=== PATIENT | female | born 1940 ===

== ENCOUNTER 2024-08-10 16:15 | Emergency (ER) | payer MEDICARE, OTHER ==
[~2024-08-10] VITALS: Ht 170.2 cm; Wt 43.2 kg
[2024-08-10] MEDS ORDERED: SENN-376 PO (17:50)
[2024-08-10] MEDS ORDERED: MULT-1192 PO (17:50)
[2024-08-10] MEDS ORDERED: VITA-328 PO (17:50)
[2024-08-10] MEDS ORDERED: GABA-1181 PO (17:50)
[2024-08-10] MEDS ORDERED: CALC-992 PO (17:50)
[2024-08-10] MEDS ORDERED: OMEG100014 PO (17:50)
[2024-08-10] MEDS ORDERED: MINE133E26 PR (17:50)
[2024-08-10] MEDS ORDERED: SERT-158 PO (17:50)
[2024-08-10] MEDS ORDERED: DOCU50LI40 PO (17:50)
[2024-08-10] MEDS ORDERED: MIRT-89 PO (17:50)
[2024-08-10] MEDS ORDERED: MEGE400O44 PO (17:50)
[2024-08-10] MEDS ORDERED: MEMA10TA24 PO (17:50)
[2024-08-10] MEDS ORDERED: BISA10SU11 PR (17:50)
[2024-08-10] MEDS ORDERED: MELA3TAB89 PO (17:50)
[2024-08-10] MEDS ORDERED: MAGN-169 PO (17:50)
[2024-08-10] MEDS ORDERED: ACET-2247 PO (17:50)
[2024-08-10 18:07] LABS: ANION GAP 7 mmol/L (8-16); CALCIUM, TOTAL 8.5 mg/dL (8.8-10.5); CARBON DIOXIDE 24 mmol/L (22-29); CHLORIDE 107 mmol/L (98-107); CREATININE 0.71 mg/dL (0.60-1.30); GLOMERULAR FILTR. RATE CALC > 60 mL/min (>60); GLUCOSE,RANDOM 96 mg/dL (70-110); POTASSIUM 3.9 mmol/L (3.5-5.1); SODIUM SERUM 138 mmol/L (136-145); UREA NITROGEN, BLOOD 17 mg/dL (7-18)
[2024-08-10 18:08] LABS: BASOPHILS % (AUTO) 1.1 % (0.0-2.0); HEMATOCRIT 35.6 % (36-46); HEMOGLOBIN 12.2 g/dL (12.0-16.0); LYMPHOCYTES # (AUTO) 1.7 K/uL (1.0-4.8); LYMPHOCYTES % (AUTO) 27.4 % (22.0-44.0); MEAN CORPUSCULAR HEMOGLOBIN 31.7 pg (26.0-34.0); MEAN CORPUSCULAR HGB CONC 34.3 G/dL (31.0-37.0); MEAN CORPUSCULAR VOLUME 92 fL (80-100); MONOCYTES # (AUTO) 0.8 K/uL (0.1-1.0); MONOCYTES % (AUTO) 12.2 % (2.0-9.0); NEUTROPHILS # (AUTO) 3.6 K/uL (1.8-7.7); NEUTROPHILS % (AUTO) 57.3 % (40.0-70.0); PLATELET COUNT (AUTO) 172 K/uL (150-450); RED BLOOD CELL COUNT(AUTO) 3.86 MIL/uL (4.00-5.20); RED CELL DISTRIBUTION WIDTH 14.4 % (11.5-14.5); WHITE BLOOD COUNT (AUTO) 6.3 K/uL (4.5-11.0)
[2024-08-10 19:20] VITALS: BP 144/80; PULSE 70; RESP 13; TEMP 97.9; O2SAT 99
[2024-08-10 20:52] LABS: COVID AG,FIA SOURCE NASAL SWAB
[2024-08-10 21:14] LABS: SARS-COV2 (COVID) ANTIGEN,FIA Negative (Negative)
[2024-08-10 21:51] LABS: APPEARANCE,URINE HAZY (CLEAR); BILIRUBIN,URINE NEGATIVE (NEGATIVE); COLOR,URINE LIGHT YELLOW (YELLOW); GLUCOSE, URINE (UA) NEGATIVE (NEGATIVE); KETONES,URINE NEGATIVE (NEGATIVE); LEUKOCYTE ESTERASE ,URINE SMALL (NEGATIVE); NITRATE,URINE POSITIVE (NEGATIVE); OCCULT BLOOD,URINE NEGATIVE (NEGATIVE); PROTEIN,URINE NEGATIVE (NEGATIVE); SPECIFIC GRAVITIY, URINE 1.008 (1.003-1.030); UROBILINOGEN,URINE <=1.0 mg/dL (<=1.0)
[2024-08-10 21:58] LABS: ALCOHOL, URINE DRUG SCREEN NEGATIVE (NEGATIVE); AMPHET/METH SCREEN,URINE NEGATIVE (NEGATIVE); BARBITURATE SCREEN, URINE NEGATIVE (NEGATIVE); BENZODIAZEPINES SCREEN,URINE NEGATIVE (NEGATIVE); CANNABINOID SCREEN,URINE NEGATIVE (NEGATIVE); COCAINE SCREEN,URINE NEGATIVE (NEGATIVE); METHADONE SCREEN, URINE NEGATIVE (NEGATIVE); OPIATE SCREEN,URINE NEGATIVE (NEGATIVE); PHENCYCLIDINE SCREEN,URINE NEGATIVE (NEGATIVE)
[2024-08-10 22:06] LABS: BACTERIA,URINE Many /HPF (None Seen); RBC,URINE 0-2 /HPF (0-2); SQUAMOUS EPITHELIAL CELL,UR Few /LPF (None Seen)
[2024-08-10] MEDS: CEPHALEXIN MONOHYDRATE 500 MG CAPSULE PO ONE (22:28)
== END 2024-08-11 00:09 ==
LOC: EMS 16:15
DX: N39.0 Urinary tract infection, site not specified (principal); R41.0 Disorientation, unspecified; F02.83 Dementia in other diseases classified elsewhere, unspecified severity, with mood disturbance; F32.A Depression, unspecified; G30.9 Alzheimer's disease, unspecified; Z79.899 Other long term (current) drug therapy; Z20.822 Contact with and (suspected) exposure to COVID-19
CPT/HCPCS: 99283; 87426; 80048; 81001; 85025; 87077; 87086; 36415; 80307; G0480